=== PATIENT | male | born 1975 ===

== ENCOUNTER 2017-11-03 19:09 | Emergency (ER) | payer OTHER ==
[2017-11-03 19:09] VITALS: BMI 28.0
[2017-11-03 19:23] VITALS: TEMP 97.8
--- NOTE | 2017-11-03 19:55 | C.PDOC ---
History Of Present Illness 42 yo male come in for evaluation of pruritic rash gradually developed for past 5 days. Pt admits, worse started from B/L inner wrist and spread to body, " extremely itchy, worse at night night". Pt daughter also patient in ED with similar symptoms. Otherwise, pt denies recent illness, fever, chills, new medication or diet change, drooling, throat swelling or tightness, cough, SOB, wheezing, abd. pain, V/D, denies recent travel or known sick contact. Ambulate to ED for evaluation, not in any apparent distress. Time Seen by Provider: 11/03/17 19:22 Chief Complaint (Nursing): Abnormal Skin Integrity History Per: Patient Onset/Duration Of Symptoms: Gradual Past Medical History Reviewed: Historical Data, Nursing Documentation, Vital Signs Vital Signs: Last Vital Signs Temp 97.8 F 11/03/17 19:23 Pulse 78 11/03/17 19:23 Resp 20 11/03/17 19:23 BP 99/63 L 11/03/17 19:23 Pulse Ox 93 L 11/03/17 19:23 - Medical History PMH: No Chronic Diseases Surgical History: No Surg Hx - [facility] Procedures TETANUS TOXOID ADMINIST (02/24/15) Family History: States: Unknown Family Hx - Social History Hx Tobacco Use: No Hx Alcohol Use: Yes Hx Substance Use: No - Immunization History Hx Tetanus Toxoid Vaccination: No Hx Influenza Vaccination: No Hx Pneumococcal Vaccination: No Review Of Systems Except As Marked, All Systems Reviewed And Found Negative. Constitutional: Negative for: Fever, Chills ENT: Negative for: Mouth Swelling, Throat Pain, Throat Swelling Respiratory: Negative for: Cough, Shortness of Breath, Wheezing Gastrointestinal: Negative for: Nausea, Vomiting, Abdominal Pain Genitourinary: Negative for: Frequency, Incontinence Musculoskeletal: Negative for: Neck Pain Skin: Positive for: Rash Neurological: Negative for: Altered Mental Status Physical Exam - Physical Exam Appears: Well, Non-toxic, No Acute Distress Skin: Normal Color, Warm, Dry, Rash (scattered macular erythematous rash to palmar aspect B/L wrist, lower abdome. NO edema, no cellulitis, no proximal streaking.) Head: Normacephalic Eye(s): bilateral: PERRL Nose: No Flaring, No Discharge Oral Mucosa: Moist Tongue: No Swelling Lips: No Swelling Throat: No Erythema, No Drooling, Other (Uvula midline, no edema.) Neck: Trachea Midline, Supple Respiratory: No Decreased Breath Sounds, No Accessory Muscle Use, No Stridor, No Wheezing Gastrointestinal/Abdominal: Soft, No Tenderness Extremity: Normal ROM, No Deformity, No Swelling Neurological/Psych: Oriented x3, Normal Speech ED Course And Treatment O2 Sat by Pulse Oximetry: 98 Pulse Ox Interpretation: Normal Progress Note: On re-evaluation, pt is afebrile, hemodynamicaly stable. NOn- toxic. PulseOx 98% RA. ENT: no acute findings. Uvula midline, no edema. neck : Supple, (-) meningeal sign. Lungs: CTA B/L, BS equal B/L. ABd: benign. SKin : exam c/w rash likely scabies r/o allergic rash, s/p exposure similar rash in family member. No evidence of cellulitis or abscess. Pt advised on course of ds. ref. to F/u with PMD in 1-2 dyas for re-eval. Return to ED if any worsening or new changes. Disposition Counseled Patient/Family Regarding: Diagnosis, Need For Followup, Rx Given - Disposition Referrals: [facility] [Outside] Disposition: HOME/ ROUTINE Disposition Time: 19:50 Condition: STABLE Additional Instructions: Use medication as prescribed Consider all family member to be treated as well Follow up with PMD in2 days for re-evaluation. return to ED if any worsening or new changes. Prescriptions: DiphenhydrAMINE [Benadryl] 25 mg PO BID #10 cap Permethrin 5% [Permethrin 5% Cream] 1 inch TP ONCE #1 tube Prednisone [Deltasone] 20 mg PO DAILY #3 tablet Instructions: Skin Rash, Scabies - Clinical Impression Clinical Impression: Rash, Scabies
[2017-11-03 19:57] VITALS: BP 102/65; PULSE 75; RESP 18; O2SAT 98
== END 2017-11-03 20:10 | disposition home or self-care (01) ==
LOC: C.ER 19:09
DX: B86 Scabies (principal)